=== PATIENT | female | born 1935 | race Caucasian/White ===

== ENCOUNTER → 2018-07-26 | Outpatient (REF) | payer MEDICARE ==
[2018-07-26 19:15] LABS: BACTERIA, URINE AUTO 1+ (NEGATIVE); MUCUS, URINE SMALL (NEGATIVE); RBC, URINE AUTO 4 /HPF (0-3); SQUAMOUS EPITHELIAL CELL UR AU 1 /HPF (0-6); WBC, URINE AUTO 118 /HPF (0-3)
== END ==
LOC: EEVIPCON 17:08 → M SMT 17:08
PROVIDERS: ATTEND Specialist
DX: N39.0 Urinary tract infection, site not specified (principal)
CPT/HCPCS: 81015; 87186; G0463

== ENCOUNTER → 2019-03-08 | Outpatient (REF) | payer MEDICARE ==
[2019-03-08 12:35] LABS: BACTERIA, URINE AUTO 1+ (NEGATIVE); MUCUS, URINE SMALL (NEGATIVE); RBC, URINE AUTO 42 /HPF (0-3); SQUAMOUS EPITHELIAL CELL UR AU 2 /HPF (0-6); WBC, URINE AUTO TNTC /HPF (0-3)
== END ==
LOC: M SMT 11:57
PROVIDERS: ATTEND Specialist
DX: N39.0 Urinary tract infection, site not specified (principal)
CPT/HCPCS: 81015; 87088; 87186; G0463

== ENCOUNTER → 2019-07-08 | Outpatient (REF) | payer MEDICARE ==
[2019-07-08 14:12] LABS: APPEARANCE, URINE CLOUDY (CLEAR); BACTERIA, URINE AUTO NEGATIVE (NEGATIVE); BILIRUBIN, URINE AUTO NEGATIVE (NEGATIVE); BLOOD, URINE BLOOD 1+ (NEGATIVE); COLOR, URINE YELLOW (YELLOW); GLUCOSE, URINE (UA) AUTO NEGATIVE (NEGATIVE); KETONE, URINE AUTO NEGATIVE (NEGATIVE); LEUKOCYTE ESTERASE, URINE AUTO 3+ (NEGATIVE); MUCUS, URINE SMALL (NEGATIVE); NITRITE, URINE AUTO NEGATIVE (NEGATIVE); PROTEIN, URINE AUTO 1+ mg/dL (NEGATIVE); RBC, URINE AUTO 15 /HPF (0-3); SQUAMOUS EPITHELIAL CELL UR AU 0 /HPF (0-6); UROBILINOGEN, URINE AUTO 0.2 mg/dL (0.0-2.0); WBC, URINE AUTO TNTC /HPF (0-3)
== END ==
LOC: M SMT 13:11
PROVIDERS: ATTEND Urology
DX: N39.0 Urinary tract infection, site not specified (principal)

== ENCOUNTER 2019-08-30 09:20 | Day surgery (SDC) | payer MEDICARE ==
[~2019-08-30] VITALS: Ht 162.6 cm; Wt 87.7 kg
[~2019-08-30 09:20] MED LIST: BROV15NE INH; CEPH250T PO; CIPROFLOXACIN 400 MG in IV 1 EA IV ONE; CYMB1CAP5 PO; ELIQ5TAB PO; LISI-542 PO; LR 1,000 ML IV ONE; LYRI200C PO; METH-855 PO; OMEP-218 PO; OXYB5TAB10 PO; SING10TA32 PO
[2019-08-30 09:41] VITALS: BP 138/80
[2019-08-30] MEDS ORDERED: CEFD1CAP8 PO (10:04)
[2019-08-30] MEDS ORDERED: MUCI600T31 PO (10:04)
[2019-08-30] MEDS ORDERED: LIDOCAINE 1% MDV INJ 50 ML VIAL As Ordered ONE (10:10)
[2019-08-30] MEDS ORDERED: CONRAY-60 60% 50ML VIAL (Q9961) As Ordered ONE (10:10)
[2019-08-30] MEDS ORDERED: MIDAZOLAM INJ 2 MG/2 ML VIAL (J2250) As Ordered ONE (10:10)
[2019-08-30] MEDS ORDERED: LIDOCAINE 2% 5ML JELLY UROJET As Ordered ONE (10:10)
[2019-08-30] MEDS ORDERED: propofoL 200 MG/20 ML VIAL As Ordered ONE (10:11)
[2019-08-30] MEDS ORDERED: LIDOCAINE 2% INJ 100 MG/5 ML SDV (FOR ANES.) As Ordered ONE (10:11)
[2019-08-30] MEDS ORDERED: fentaNYL 100 MCG/2 ML INJECTION (J3010) As Ordered ONE (10:14)
== END 2019-08-30 10:35 | disposition home or self-care (01) ==
LOC: M SDC 09:20
PROVIDERS: ATTEND Specialist
DX: N32.9 Bladder disorder, unspecified (principal); Z53.09 Procedure and treatment not carried out because of other contraindication; Z79.01 Long term (current) use of anticoagulants
CPT/HCPCS: J2250; J3010

== ENCOUNTER 2019-09-10 12:12 | Day surgery (SDC) | payer MEDICARE ==
[~2019-09-10] VITALS: Ht 162.6 cm; Wt 87.3 kg
[~2019-09-10 12:12] MED LIST changes: +CEFD1CAP8 PO; -CIPROFLOXACIN 400 MG in IV 1 EA IV ONE; +MUCI600T31 PO; +ceFAZolin SOD 2 GM in IV 1 EA IV ONE
[2019-09-10 13:37] LABS: INR 2.5; PROTHROMBIN TIME 26.8 SECONDS (11.8-14.0)
[2019-09-10] MEDS ORDERED: CONRAY-60 60% 50ML VIAL (Q9961) As Ordered ONE (13:53)
[2019-09-10] MEDS ORDERED: propofoL 200 MG/20 ML VIAL As Ordered ONE (14:23)
[2019-09-10] MEDS ORDERED: ONDANSETRON 4MG/2ML VIAL (J2405) As Ordered ONE (14:23)
[2019-09-10] MEDS ORDERED: LIDOCAINE 2% INJ 100 MG/5 ML SDV (FOR ANES.) As Ordered ONE (14:23)
[2019-09-10] MEDS ORDERED: MIDAZOLAM INJ 2 MG/2 ML VIAL (J2250) As Ordered ONE (14:25)
[2019-09-10] MEDS ORDERED: fentaNYL 100 MCG/2 ML INJECTION (J3010) As Ordered ONE ×2 (14:25→16:11)
[2019-09-10] MEDS ORDERED: ROCURONIUM BROMIDE 50 MG/5 ML VIAL As Ordered ONE ×2 (14:27→16:26)
[2019-09-10] MEDS ORDERED: ACETAMINOPHEN 1000MG 100ML IV BTL (OFIRMEV) (J0131 PER 10MG) As Ordered ONE (16:06)
[2019-09-10] MEDS ORDERED: KETOROLAC 60 MG/2 ML VIAL (J1885) As Ordered ONE (16:06)
[2019-09-10] MEDS ORDERED: SUGAMMADEX SODIUM 500 MG/5 ML VIAL (BRIDION) As Ordered ONE (16:14)
[2019-09-10] MEDS ORDERED: LABETALOL HCL 100 MG/20 ML VIAL As Ordered ONE (16:43)
[2019-09-10 17:30] LABS: APPEARANCE, URINE HAZY (CLEAR); BACTERIA, URINE AUTO NEGATIVE (NEGATIVE); BILIRUBIN, URINE AUTO NEGATIVE (NEGATIVE); BLOOD, URINE BLOOD 3+ (NEGATIVE); COLOR, URINE STRAW (YELLOW); GLUCOSE, URINE (UA) AUTO NEGATIVE (NEGATIVE); KETONE, URINE AUTO NEGATIVE (NEGATIVE); LEUKOCYTE ESTERASE, URINE AUTO NEGATIVE (NEGATIVE); NITRITE, URINE AUTO NEGATIVE (NEGATIVE); PROTEIN, URINE AUTO NEGATIVE (NEGATIVE); RBC, URINE AUTO TNTC /HPF (0-3); SPECIFIC GRAVITY URINE AUTO 1.005 (1.002-1.035); SQUAMOUS EPITHELIAL CELL UR AU 0 /HPF (0-6); UROBILINOGEN, URINE AUTO 0.2 mg/dL (0.0-2.0); WBC, URINE AUTO 13 /HPF (0-3)
[2019-09-10 17:32] LABS: APPEARANCE, URINE CLOUDY (CLEAR); BACTERIA, URINE AUTO 3+ (NEGATIVE); BILIRUBIN, URINE AUTO NEGATIVE (NEGATIVE); BLOOD, URINE BLOOD 3+ (NEGATIVE); COLOR, URINE YELLOW (YELLOW); GLUCOSE, URINE (UA) AUTO NEGATIVE (NEGATIVE); KETONE, URINE AUTO NEGATIVE (NEGATIVE); LEUKOCYTE ESTERASE, URINE AUTO 2+ (NEGATIVE); NITRITE, URINE AUTO NEGATIVE (NEGATIVE); PROTEIN, URINE AUTO NEGATIVE (NEGATIVE); RBC, URINE AUTO TNTC /HPF (0-3); SPECIFIC GRAVITY URINE AUTO 1.004 (1.002-1.035); SQUAMOUS EPITHELIAL CELL UR AU 0 /HPF (0-6); UROBILINOGEN, URINE AUTO 0.2 mg/dL (0.0-2.0); WBC, URINE AUTO 77 /HPF (0-3)
[2019-09-10 17:34] LABS: APPEARANCE, URINE CLOUDY (CLEAR); BACTERIA, URINE AUTO 2+ (NEGATIVE); BILIRUBIN, URINE AUTO NEGATIVE (NEGATIVE); BLOOD, URINE BLOOD 1+ (NEGATIVE); COLOR, URINE YELLOW (YELLOW); GLUCOSE, URINE (UA) AUTO NEGATIVE (NEGATIVE); KETONE, URINE AUTO NEGATIVE (NEGATIVE); LEUKOCYTE ESTERASE, URINE AUTO 3+ (NEGATIVE); NITRITE, URINE AUTO NEGATIVE (NEGATIVE); PROTEIN, URINE AUTO 1+ mg/dL (NEGATIVE); RBC, URINE AUTO 35 /HPF (0-3); SQUAMOUS EPITHELIAL CELL UR AU 1 /HPF (0-6); UROBILINOGEN, URINE AUTO 0.2 mg/dL (0.0-2.0); WBC, URINE AUTO TNTC /HPF (0-3)
[2019-09-10 18:37] VITALS: BP 148/71
--- NOTE | 2019-09-10 22:35 | RO ---
DATE OF PROCEDURE: 09/10/2019 PREPROCEDURE DIAGNOSIS: Recurrent urinary tract infections (UTIs) with possible bladder mass. POSTPROCEDURE DIAGNOSIS: Chronic cystitis and recurrent urinary tract infections. PROCEDURE: Cystoscopy, bladder fulguration, bilateral renal washings, bilateral retrogrades. SURGEON: Dr. Chito Arana ROCK DRILL OPERATOR: None ANESTHESIA: General. INDICATION FOR OPERATION: This is an 83-year-old white female with recurrent urinary tract infections and severe urinary incontinence. Office cystoscopy showed a possible bladder mass, and she was, therefore, brought to the operating room for further evaluation, resection of any bladder lesions, and bilateral retrogrades. DESCRIPTION OF PROCEDURE: The patient was anesthetized with general anesthesia after being placed on the table in a supine position. She was then placed in the lithotomy position, prepped with Betadine paint and draped in an aseptic manner. Time-out was then performed. A #26 Kinyarwanda continuous-flow resectoscope was then inserted into the meatus and advanced under direct vision of a 30-degree lens. The urethral channel was seen to be wide open directly into the bladder. At the bladder neck, there was a large pimple formation, which drained a moderate amount of pus. Urine cultures were taken from the bladder and urine for cytologies was also collected. On the posterior wall of the bladder, the patient had severe bleeding from just severely irritated bladder mucosa This was fulgurated with the loop element. The right ureteral orifice as well as the left ureteral orifice were both quite large and stadium shaped. The right ureteral orifice was then catheterized with a #5-Kinyarwanda Pollack catheter and 30 mL of urine was collected for culture and cytology. A retrograde injection showed that the patient had a widened ureter and renal pelvis from reflux. The left ureteral orifice was then catheterized and urine was collected for culture and cytology. Retrograde injection showed a normal channel on this side with no dilation or masses. The bladder was then drained, resectoscope was removed, and, again, the patient was noted to have a straight and open urethra with no muscular activity to the periurethral area. The patient was then awakened and sent to the recovery room in stable condition having tolerated the procedure well. DRAINS: None EBL: Less than 10 cc MTDD
--- NOTE | 2019-09-11 07:26 | REP ---
C-ARM VIEWS DURING RETROGRADE PYELOGRAM: Multiple C-ARM views are performed. Contrast is intact into the distal right ureter. Right ureter is mildly dilated with no definite stricture or filling defect of the opacified portion. Right pelvicaliceal system also appears mildly dilated with no definite filling defect. Contrast is injected into the distal left ureter. There does not appear to be significant narrowing of the proximal left ureter. There is focal decreased caliber of the distal left ureter at the inferior margin of the sacrum which could be transient. I can not exclude a stricture. Left pelvicalyceal system demonstrates no significant dilatation or filling defect. Fluoroscopy time 16 seconds. Electronically Signed by Demario Watts MD 09/11/2019 10:34 P
== END 2019-09-10 18:40 | disposition home or self-care (01) ==
LOC: M SDC 12:12
PROVIDERS: ATTEND Urology
DX: N39.0 Urinary tract infection, site not specified (principal); N30.10 Interstitial cystitis (chronic) without hematuria; I10 Essential (primary) hypertension; I48.91 Unspecified atrial fibrillation; K21.9 Gastro-esophageal reflux disease without esophagitis; D64.9 Anemia, unspecified; M79.7 Fibromyalgia; M81.0 Age-related osteoporosis without current pathological fracture; J44.9 Chronic obstructive pulmonary disease, unspecified; Z79.01 Long term (current) use of anticoagulants; Z79.899 Other long term (current) drug therapy; Z88.5 Allergy status to narcotic agent
CPT/HCPCS: 36415; 52234; 74420; 81001; 85610; 87088; 87186; 88108; C1769; C2617; J0131; J0690; J1885; J2405; J3010; Q9961

== ENCOUNTER → 2019-12-31 | Outpatient (REF) | payer MEDICARE ==
[~2019-12-31] MED LIST changes: -LR 1,000 ML IV ONE; -ceFAZolin SOD 2 GM in IV 1 EA IV ONE
[2019-12-31 15:24] LABS: APPEARANCE, URINE CLOUDY (CLEAR); BACTERIA, URINE AUTO NEGATIVE (NEGATIVE); BILIRUBIN, URINE AUTO NEGATIVE (NEGATIVE); BLOOD, URINE BLOOD 3+ (NEGATIVE); COLOR, URINE YELLOW (YELLOW); GLUCOSE, URINE (UA) AUTO NEGATIVE (NEGATIVE); KETONE, URINE AUTO NEGATIVE (NEGATIVE); LEUKOCYTE ESTERASE, URINE AUTO 2+ (NEGATIVE); NITRITE, URINE AUTO NEGATIVE (NEGATIVE); PROTEIN, URINE AUTO 2+ mg/dL (NEGATIVE); RBC, URINE AUTO TNTC /HPF (0-3); SPECIFIC GRAVITY URINE AUTO 1.018 (1.002-1.035); SQUAMOUS EPITHELIAL CELL UR AU 2 /HPF (0-6); UROBILINOGEN, URINE AUTO 0.2 mg/dL (0.0-2.0); WBC, URINE AUTO TNTC /HPF (0-3)
== END ==
LOC: M SMT 14:41
PROVIDERS: ATTEND Urology
DX: N39.0 Urinary tract infection, site not specified (principal)
CPT/HCPCS: 81001; 87086; G0463

== ENCOUNTER → 2020-03-23 | Outpatient (REF) | payer MEDICARE ==
[~2020-03-23] MED LIST changes: +FERR325T3 PO; +METO1TAB33
[2020-04-22 13:45] LABS: APPEARANCE, URINE TURBID (CLEAR); BACTERIA, URINE AUTO 3+ (NEGATIVE); BILIRUBIN, URINE AUTO NEGATIVE (NEGATIVE); BLOOD, URINE BLOOD 2+ (NEGATIVE); COLOR, URINE AMBER (YELLOW); GLUCOSE, URINE (UA) AUTO NEGATIVE (NEGATIVE); KETONE, URINE AUTO NEGATIVE (NEGATIVE); LEUKOCYTE ESTERASE, URINE AUTO 3+ (NEGATIVE); MUCUS, URINE SMALL (NEGATIVE); NITRITE, URINE AUTO POSITIVE (NEGATIVE); PROTEIN, URINE AUTO 2+ mg/dL (NEGATIVE); RBC, URINE AUTO 77 /HPF (0-3); SPECIFIC GRAVITY URINE AUTO 1.019 (1.002-1.035); SQUAMOUS EPITHELIAL CELL UR AU 1 /HPF (0-6); UROBILINOGEN, URINE AUTO 0.2 mg/dL (0.0-2.0); WBC, URINE AUTO TNTC /HPF (0-3)
== END ==
LOC: M SMT 06:16
PROVIDERS: ATTEND Urology
DX: N39.0 Urinary tract infection, site not specified (principal)
CPT/HCPCS: 51798; 81000; 81001; 87088; 87186; G0463

== ENCOUNTER → 2020-05-08 | Outpatient (REF) | payer MEDICARE ==
[2020-05-08 17:27] LABS: APPEARANCE, URINE CLOUDY (CLEAR); BACTERIA, URINE AUTO NEGATIVE (NEGATIVE); BILIRUBIN, URINE AUTO NEGATIVE (NEGATIVE); BLOOD, URINE BLOOD 3+ (NEGATIVE); COLOR, URINE YELLOW (YELLOW); GLUCOSE, URINE (UA) AUTO NEGATIVE (NEGATIVE); KETONE, URINE AUTO NEGATIVE (NEGATIVE); LEUKOCYTE ESTERASE, URINE AUTO 1+ (NEGATIVE); NITRITE, URINE AUTO NEGATIVE (NEGATIVE); PROTEIN, URINE AUTO 1+ mg/dL (NEGATIVE); RBC, URINE AUTO TNTC /HPF (0-3); SPECIFIC GRAVITY URINE AUTO 1.015 (1.002-1.035); SQUAMOUS EPITHELIAL CELL UR AU 2 /HPF (0-6); UROBILINOGEN, URINE AUTO 0.2 mg/dL (0.0-2.0); WBC, URINE AUTO 96 /HPF (0-3)
== END ==
LOC: M SMT 16:58
PROVIDERS: ATTEND Urology
DX: Z87.440 Personal history of urinary (tract) infections (principal); Z79.899 Other long term (current) drug therapy

== ENCOUNTER → 2020-06-07 | Outpatient (CLI) | payer MEDICARE | LOC: M LABSMTC 11:03 | PROVIDERS: ATTEND Anesthesiology | DX: Z01.812 Encounter for preprocedural laboratory examination (principal); Z20.828 Contact with and (suspected) exposure to other viral communicable diseases | CPT/HCPCS: C9803; U0003 ==

== ENCOUNTER → 2020-06-18 | Day surgery (SDC) | payer MEDICARE ==
[~2020-06-18] VITALS: Ht 162.6 cm; Wt 87.5 kg
[~2020-06-18] MED LIST changes: +ACETAMINOPHEN TAB 650MG DOSE (2X325MG) PO PRN; +LIDOCAINE 2% 100MG/5ML SDV (FOR ANES.) As Ordered ONE; +LR 1,000 ML IV ONE; +LR 1,000 ML IV SCH; +METOCLOPRAMIDE INJ 10MG/2ML VIAL (J2765 PER 1) IV PRN; +MIDAZOLAM INJ 2MG/2ML VIAL (J2250 PER 1MG) As Ordered ONE; +ONDANSETRON 4MG/2ML VIAL As Ordered ONE; +ONDANSETRON 4MG/2ML VIAL IV PRN; +PERCOCET 5MG/325MG TAB PO PRN; +ceFAZolin SOD 2 GM in IV 1 EA IV ONE; +dexameTHASONE 4 MG/ML 1ML VIAL (J1100 PER 1MG) As Ordered ONE; +fentaNYL 100 MCG/2 ML INJECTION (J3010) As Ordered ONE; +fentaNYL 100 MCG/2 ML INJECTION (J3010) IV PRN; +propofoL 200 MG/20 ML VIAL As Ordered ONE
[2020-06-18 12:55] VITALS: BP 149/82
--- NOTE | 2020-06-18 13:38 | RO ---
DATE OF OPERATION: 06/18/2020 PREOPERATIVE DIAGNOSIS: Bladder tumors. POSTOPERATIVE DIAGNOSIS: Bladder tumors. PROCEDURE: Cystoscopy, transurethral resection of bladder tumors (between 2 and 5 cm). SURGEON: Dmitri Mark MD [employer]CHOOL BUS DRIVER: None. ANESTHESIA: General. OPERATIVE INDICATIONS: This is an 84-year-old female who underwent a cystoscopy in the office approximately one month ago. She had an abnormal appearing urothelium mildly concerning for bladder cancer at that time. She was brought to the operating room today to work this up. DESCRIPTION OF PROCEDURE: The patient was brought to the operating room and general anesthesia was induced. Prophylactic antibiotics were infused. She was placed in the dorsolithotomy position, prepped, and draped in the usual sterile fashion. A resectoscope was inserted into the urethral meatus and advanced into the bladder using visual obturator. The bladder was thoroughly examined. Of note, there were about three to four areas in her bladder that had small papillary growths. All of these areas were resected using a bipolar loop. Once that was done, all the specimens were removed and sent off for pathologic analysis. The base of resection was cauterized using the coagulation current until there was good hemostasis. Once satisfied with hemostasis, the resectoscope was removed and an 18-[place] Neumann catheter was inserted into the bladder. The balloon was filled with10 mL of sterile water and then the cath was connected to gravity drainage. This marked conclusion of the procedure. The patient was then taken out of the dorsolithotomy position, awakened from anesthesia, and transferred to the recovery room in stable condition. ESTIMATED BLOOD LOSS: 5 mL. COMPLICATIONS: None. SPECIMENS: Bladder tumors. PLAN: The patient will follow-up with the urology clinic in approximately one week for catheter removal and to discuss pathology results. GOOD
== END | disposition home or self-care (01) ==
LOC: M SDC 08:20
PROVIDERS: ATTEND Urology
DX: N32.9 Bladder disorder, unspecified (principal); I10 Essential (primary) hypertension; I48.91 Unspecified atrial fibrillation; G47.30 Sleep apnea, unspecified; M79.7 Fibromyalgia; D64.9 Anemia, unspecified; M81.0 Age-related osteoporosis without current pathological fracture; K21.9 Gastro-esophageal reflux disease without esophagitis; J44.9 Chronic obstructive pulmonary disease, unspecified; Z79.01 Long term (current) use of anticoagulants; Z79.899 Other long term (current) drug therapy; Z88.5 Allergy status to narcotic agent
CPT/HCPCS: 52235; 88305; J0690; J1100; J2250; J2405; J3010; U0002